=== PATIENT | male | born 1990 | race Asian ===

== ENCOUNTER 2021-08-25 09:18 | Outpatient (CLI) | payer OTHER | END 2021-08-25 09:19 | disposition home or self-care (01) | LOC: CSHMRI 09:18 | PROVIDERS: ATTEND Family Medicine | DX: G93.9 Disorder of brain, unspecified (principal); R51.9 Headache, unspecified; R10.9 Unspecified abdominal pain; G93.0 Cerebral cysts | CPT/HCPCS: 70553; 74018 ==

== ENCOUNTER 2022-08-26 08:59 | Outpatient (CLI) | payer OTHER | END 2022-08-26 09:00 | disposition home or self-care (01) | LOC: CSHULT 08:59 | PROVIDERS: ATTEND Physician Assistant Medical | DX: R19.4 Change in bowel habit (principal); R68.81 Early satiety | CPT/HCPCS: 76700 ==